=== PATIENT | female | born 1930 | race Caucasian/White ===

== ENCOUNTER 2017-03-07 13:48 | Emergency (ER) | payer MEDICARE, OTHER ==
[~2017-03-07 13:48] MED LIST: CALTRATE; CENTRUM SILVER1 TA; ENDOCET 5/325 T1 TAB; GLIPIZIDE XL5 MG; HYDROCODONE/A; LORAZEPAM1 MG; MOBIC7.5 MG; OMEPRAZOLE20 MG; THYROID65 MG
[2017-03-07] MEDS ORDERED: GLIPIZIDE XL5 M1 PO (14:16)
[2017-03-07] MEDS ORDERED: SYNTHROID75 MC1 PO (14:16)
[2017-03-07] MEDS ORDERED: OMEPRAZOLE20 M3 PO (14:16)
[2017-03-07] MEDS ORDERED: MOBIC7.5 M2 PO (14:16)
[2017-03-07] MEDS ORDERED: CENTRUM COMPLE1 EAC1 PO (14:16)
[2017-03-07] MEDS ORDERED: CALCIUM 600-VI1 EACH PO (14:17)
[2017-03-07] MEDS ORDERED: PRESERVISION A1 EAC5 PO (14:45)
== END 2017-03-07 15:30 ==
LOC: EDMED 13:48
DX: S60.211A Contusion of right wrist, initial encounter (principal); I10 Essential (primary) hypertension; E11.9 Type 2 diabetes mellitus without complications; F41.9 Anxiety disorder, unspecified; Z85.3 Personal history of malignant neoplasm of breast; Z79.890 Hormone replacement therapy; Z79.899 Other long term (current) drug therapy; W18.30XA Fall on same level, unspecified, initial encounter; Y92.238 Other place in hospital as the place of occurrence of the external cause